=== PATIENT | female | born 1955 | race African-American/Black ===

== ENCOUNTER 2020-07-28 19:31 | Observation (INO) | payer OTHER, SELFPAY ==
[2020-07-28] VITALS (21 sets, daily range): BP systolic 137–184; BP diastolic 75–96; PULSE 96–104; RESP 9–19; TEMP 36.6; O2SAT 96–100
--- NOTE | ~2020-07-28 | CT_ITS ---
EXAMINATION: CT brain wo con DATE: 07/28/2020 21:13 INDICATION: Confusion, altered mental state. Overdose. History of cerebrovascular accident. TECHNIQUE: Computed tomography (CT) of the head was performed without intravenous contrast. The mA wa s adjusted according to patient size. Iterative reconstruction technique was employed. Exam dose: 68 1.00 mGy-cm total exam DLP. COMPARISON: None FINDINGS: Bilateral basal ganglia hypodensities suggest chronic lacunar infarcts. Subtle hyperdensiti es in the right basal ganglia (series 2 image 23) may be consistent with minimal focal recent hemorrh age. MR imaging is recommended for further evaluation. No intracranial mass lesion or midline shift or mass effect effect evident. Normal ventricular size. No subdural or epidural hematoma. No fracture or bone destruction of the cranial vault. Minimal soft tissue thickening within the left ethmoid air cells is noted. The included paranasal sinuses and mastoid air cells are otherwise unrema rkable. IMPRESSION: Subtle focal hyperdensities in the right basal ganglia may be consistent with minimal foc al recent hemorrhage. Bilateral basal ganglia hypodensities suggest chronic lacunar infarcts Consider brain MRI for further evaluation Reviewed, dictated and finalized at [facility]. Reviewed, dictated and finalized at [facility]. IMPRESSION: Subtle focal hyperdensities in the right basal ganglia may be consi stent with minimal focal recent hemorrhage. Bilateral basal ganglia hypodensities suggest chronic lacunar infarcts Consider brain MRI for further evaluation
--- NOTE | ~2020-07-28 | MR_ITS ---
EXAMINATION: MR brain IAC wo con EXAM DATE: 07/29/2020 13:27 INDICATION: Encephalopathy TECHNIQUE: Multi-sequential, multiplanar MR images of the brain, brainstem, internal auditory canals were obtained without contrast. Whole brain sagittal T1, axial diffusion, gradient echo (T2*), T1, T 2, FLAIR sequences obtained. High resolution coronal 3-D FIESTA, coronal T1 FSE, axial T1 FSPGR of t he internal auditory canals. Correlation is made to head CT from 07/28/2020. FINDINGS: No evidence of mastoid or middle ear opacification. The 7th/8th cranial nerve complexes a re symmetric, normal in course and caliber. No cerebellopontine angle masses. Posterior fossa unrem arkable. There are no areas of restricted diffusion to suggest acute infarction. There is symmetric T2 hyperin tensity within the globus pallidus bilaterally without corresponding restricted diffusion or signific ant increase on FLAIR sequences. Appearance suggests that this is chronic finding, with differential diagnosis including prior episode carbon monoxide poisoning, old lacunar infarctions. There is no acute hemorrhage seen on the T2*, a hemosiderin sensitive sequence. No intraparenchymal brain mass lesion. There is mild to moderate periventricular and subcortical T2/FLAIR signal hyperint ensity, nonspecific but probably related to small vessel ischemic disease (microangiopathy). There are no extra-axial collections. Flow voids are seen in the cerebral arteries on the T2-weighted sequ ences consistent with their expected patency. The orbits are unremarkable. Soft tissue is unremarka ble. IMPRESSION: 1. No acute intracranial findings. 2. Symmetric basal ganglia T2 signal hyperintensity most likely chronic. Considerations include lillie or episode Carbon monoxide poisoning, old symmetric lacunar infarctions from other etiology. 3. Mild to moderate microangiopathy. Reviewed, dictated and finalized at [facility]. IMPRESSION: 1. No acute intracranial findings. 2. Symmetric basal ganglia T2 signal hyperintensity most likely chronic. Cons iderations include prior episode Carbon monoxide poisoning, old symmetric lacun ar infarctions from other etiology. 3. Mild to moderate microangiopathy.
--- NOTE | ~2020-07-28 | XR_ITS ---
EXAMINATION: XR ankle LT 2V DATE: 07/29/2020 07:42 INDICATION: Left foot pain TECHNIQUE: Anteroposterior and lateral views of the left ankle were obtained. COMPARISON: None. FINDINGS: Alignment is normal. No fracture. The subtalar joint is not profiled with appearance suggesting poss ible talocalcaneal coalition. Mild osteoarthritis at the first metatarsophalangeal and a few tarsal m etatarsal joints. Small plantar calcaneal spur.. No ankle joint effusion. The soft tissues are unrem arkable. IMPRESSION: 1. 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 No acute osseous abnormality. 2. Mild degenerative changes including mild polyarticular osteoarthritis in the mid and forefoot and small plantar calcaneal spur. Reviewed, dictated and finalized at [facility]. IMPRESSION: 1. 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 No acute osseous abnormality . 2. Mild degenerative changes including mild polyarticular osteoarthritis in the mid and forefoot and small plantar calcaneal spur.
--- NOTE | 2020-07-28 19:44 | ECG_ITS ---
Measurements Intervals Ocate Rate: 97 P: 69 TX: 131 QRS: 51 QRSD: 82 T: 63 QT: 336 QTc: 429 Interpretive Statements SINUS RHYTHM BASELINE ARTIFACT- I, II, AVR, AVL NORMAL ECG Electronically Signed On 07-28-2020 20:03:40 CDT by Rafael Gillis D.O.
--- NOTE | 2020-07-28 20:44 | ED.OVERDOSE ---
HPI - Overdose General Chief Complaint: Overdose Stated Complaint: ingestion - vicodin and thc Time Seen by Provider: 07/28/20 20:39 Source: EMS Mode of arrival: EMS Limitations: no limitations History of Present Illness HPI Narrative: Patient is a 64-year-old female brought in by EMS due to possible drug overdose. Patient was found unresponsive with vomit in her mouth by family member and called EMS. Upon EMS arrival, patient was given Narcan, which reversed her condition, she became more alert and awake. Patient has a history of drug abuse last year and CVA. Patient states that she took 4 tablets of her Vicodin because she was having severe pain from her broken foot she suffered last year. I asked if she took any other drugs besides the Vicodin that was prescribed, she admits to taking heroin, which he snorted. Patient denies any thoughts of self injury or suicidal thoughts. Patient denies any headache, speech or visual disturbance, focal weakness or numbness, chest pain, shortness of breath abdominal pain, nausea, vomiting, fever or chills. Review of Systems Review of Systems: All systems reviewed & are unremarkable except as noted in HPI and below Constitutional: Constitutional: Denies body ache(s), Denies chills, Denies excessive sweating, Denies fatigue, Denies fever(s), Denies headache(s), Denies lethargy, Denies malaise, Denies weakness and Denies weight loss Eyes: Eyes: Denies blurry vision, Denies change in vision and Denies loss of vision ENT: Denies dizziness, Denies ear discharge, Denies headache(s), Denies lip swelling, Denies epistaxis, Denies nasal congestion, Denies neck pain, Denies throat swelling and Denies tongue swelling Cardiovascular: Cardiovascular: Denies chest pain, Denies chest pain at rest, Denies chest pain with activity, Denies diaphoresis, Denies rapid heart rate, Denies edema, Denies irregular heart rhythm, Denies lightheadedness, Denies palpitations, Denies dyspnea and Denies dyspnea on exertion Respiratory: Respiratory: Denies chest congestion, Denies cough, Denies hemoptysis, Denies dyspnea and Denies dyspnea on exertion Gastrointestinal: Gastrointestinal: Denies abdominal pain, Denies melena, Denies hematochezia, Denies diarrhea, Denies nausea, Denies vomiting and Denies hematemesis Musculoskeletal: Musculoskeletal: Denies neck pain and Denies numbness Neurologic: Denies Abnormal speech present, Denies abnormal gait, Denies confusion, Denies dizziness, Denies headache(s), Denies focal weakness, Denies loss of vision, Denies numbness, Denies Other visual disturbances, Denies Sensory deficit (Neuro) and Denies weakness Psychiatric: Psychiatric: Denies confusion, Denies depression, Denies auditory hallucinations, Denies homicidal ideation and Denies suicidal ideation Endocrine: Endocrine: Denies cold intolerance, Denies excessive sweating, Denies fatigue, Denies heat intolerance and Denies palpitations Hematologic/Lymphatic: Hematologic/Lymphatic: Denies easy bleeding and Denies easy bruising Allergic/Immunologic: Allergic/Immunologic: Denies lip swelling, Denies throat swelling and Denies tongue swelling PMFSH Comments Past medical history: CVA, chronic pain Social history: Smoker, no EtOH use, occasional drug use Family history: Noncontributory Exam Const: General: cooperative, healthy appearing, comfortable, no acute distress, well developed, alert and awake; No confusion Orientation/consciousness: oriented to person, oriented to place, oriented to time, patient oriented x3 and No confusion Limitations: no limitations HENMT: Head: normal to inspection, normocephalic and atraumatic Ears: hearing grossly normal bilaterally, TM normal on the right and TM normal on the left General nose exam: Normal external nose present, Normal nares present and No nasal discharge present Face and sinus: normal facial exam Mouth: Yes Normal oral and palatal mucosa present, Yes lip normal, Yes tongue normal and Yes
--- NOTE | 2020-07-28 21:06 | PC.NURSE ---
Zayda, [facility] [employer], said they would run the [facility]ed blood soon.
[2020-07-28 21:10] LABS: Basophils Percent Auto 0.3 % (0.2-1.2); Eosinophils Percent Auto 0.7 % (0-4.4); Hematocrit 38.1 % (37.0-47.0); Hemoglobin 12.2 g/dL (12.0-15.0); Immature Granulocyte Absolute 0.02 K/mm3 (0.00-0.031); Immature Granulocyte Percent A 0.3 % (0-0.5); Lymphocytes Absolute Auto 0.45 K/mm3 (0.9-3.2); Lymphocytes Percent Auto 7.3 % (18.3-44.2); Mean Corpuscular Hemoglobin 29.1 pg (26-34); Mean Corpuscular Volume 90.9 fl (80-100); Mean Platelet Volume 9.9 fl (7.4-10.4); Monocytes Absolute Auto 0.4 K/mm3 (0.1-0.6); Monocytes Percent Auto 6.7 % (2.6-8.5); Neutrophils Absolute Auto 5.2 K/mm3 (1.3-6.7); Neutrophils Percent Auto 84.7 % (45.5-73.1); Platelet Count Result 312 k/mm3 (150-375); Red Blood Count 4.19 M/mm3 (4.2-5.4); Red Cell Distribution Width 14.6 % (11.5-14.5); White Blood Count 6.2 K/mm3 (4.5-10.0)
[2020-07-28 21:18] LABS: Alanine Aminotransferase 19 U/L (4-35); Albumin Level 4.5 g/dL (3.5-5.1); Alkaline Phosphatase 105 U/L (38-126); Anion Gap 10 mmol/L (8-16); Aspartate Amino Transferase 58 U/L (14-36); Bilirubin,Total 0.4 mg/dL (0.2-1.3); Blood Urea Nitrogen 16 mg/dL (7-17); Calcium 9.5 mg/dL (8.4-10.2); Carbon Dioxide 27 mmol/L (22-30); Chloride 104 mmol/L (98-107); Estimated Glomerular Filt Rate 55; Glucose 104 mg/dL (65-105); Potassium 4.1 mmol/L (3.4-5.0); Sodium 141 mmol/L (137-145)
[2020-07-28 21:20] LABS: Acetaminophen < 10 ug/mL (10-30); Ethanol < 10 mg/dL (<10); Salicylate < 1.0 mg/dL (2-20)
--- NOTE | 2020-07-28 23:42 | PC.NURSE ---
Pt drowsy but easily awakes to name.
[2020-07-28 23:58] LABS: Amphetamine Screen Urine Negative (Negative); Barbiturate Screen Urine Negative (Negative); Benzodiazepines Screen Urine Negative (Negative); Cannabinoid Screen Urine Positive (Negative); Cocaine Screen Urine Negative (Negative); Methadone Screen Urine Negative (Negative); Opiate Screen Urine Positive (Negative); Phencyclidine Screen Urine Negative (Negative)
[2020-07-29] VITALS (22 sets, daily range): BP systolic 138–203; BP diastolic 73–95; PULSE 74–100; RESP 8–18; TEMP 36.1–36.8; O2SAT 93–100; BMI 29.4
--- NOTE | 2020-07-29 01:04 | ADMGEN ---
This patient, Dara Cain, was admitted to [facility] Surg Room 333-01. Patient/family oriented to hospital policies and general routines including ID bracelet, bed and alarms, visiting hours, pain management, procedures, bathroom and other care routines, personal items, smoking policy, room service/diet, and visiting hours. Information on how to activate the Rapid Response Team has been discussed. Patient/Family are encouraged to report perceived risks to care and to ask questions if they do not understand what they are told or what they should do.
[2020-07-29] MEDS: LACTATED RINGERS 1,000 ML 125 ML IV CONT (01:24)
--- NOTE | 2020-07-29 05:48 | PM.IMHP ---
H&P: HPI History of Present Illness Date/Time: 07/29/20 05:48 Chief Complaint: overdose Narrative: Patient is a 64-year-old female brought in by EMS due to possible drug overdose. Patient was found unresponsive with vomit in her mouth by family member and called EMS. Upon EMS arrival, patient was given Narcan, which reversed her condition, she became more alert and awake. Patient has a history of drug abuse last year and CVA. Patient states that she took 4 tablets of her Vicodin because she was having severe pain from her broken foot she suffered last year. Ed doctor asked if she took any other drugs besides the Vicodin that was prescribed, she admits to taking heroin, which she snorted. Patient denies any thoughts of self injury or suicidal thoughts. Patient denies any headache, speech or visual disturbance, focal weakness or numbness, chest pain, shortness of breath abdominal pain, nausea, vomiting, fever or chills. upon my evaluation, she also mentioned she took some TAC which is a word used to say pot. she states she didnot tkae anything else. she reports that she is seeing someone in [facility] for her left foot fracture. Review of Systems Review of Systems: Narrative: - CONSTITUTIONAL: Denies weight loss, fever and chills. - HEENT: Denies changes in vision and hearing - RESPIRATORY: Denies SOB and cough. - CV: Denies palpitations and CP. - GI: Denies abdominal pain, nausea, vomiting and diarrhea. - : Denies dysuria and urinary frequency. - MSK: reports myalgia and joint pain. reports left foot pain - SKIN: Denies rash and pruritus. - NEUROLOGICAL: Denies headache and syncope. - PSYCHIATRIC: Denies recent changes in mood. Denies anxiety and depression. All systems reviewed & are unremarkable except as noted in HPI and below Constitutional: Constitutional: Reports fatigue and Reports weakness Neurologic: Reports weakness Endocrine: Endocrine: Reports fatigue [facility] Family History Family History (Updated 07/29/20 @ 01:12 by Raine Raymundo RN) Father Heart attack Sibling Lung cancer Social History Social History Smoking status: Current every day smoker Tobacco type: cigarettes Alcohol intake: former Gender identity (if verbalized by the patient): Female Spiritual care concerns: No Meds Home Medications and Allergies Allergies Allergy/AdvReac Type Severity Reaction Status Date / Time No Known Allergies Allergy Verified 06/01/21 23:36 Vital Signs Vital Signs - 24 hr 07/28/20 19:40 07/28/20 19:47 07/28/20 20:47 Temperature 97.8 F Pulse Rate 99 96 Respiratory Rate 13 16 12 Blood Pressure 184/95 H Pulse Oximetry 100 100 07/28/20 21:21 07/28/20 21:30 07/28/20 21:31 Temperature Pulse Rate 100 96 97 Respiratory Rate 9 L 19 15 Blood Pressure 166/91 H Pulse Oximetry 100 99 98 07/28/20 21:45 07/28/20 21:46 07/28/20 22:00 Temperature Pulse Rate 98 96 98 Respiratory Rate 12 9 L 17 Blood Pressure 163/82 H 166/96 H Pulse Oximetry 98 99 97 07/28/20 22:03 07/28/20 22:15 07/28/20 22:16 Temperature Pulse Rate 99 101 H 104 H Respiratory Rate 12 14 15 Blood Pressure 140/86 Pulse Oximetry 99 97 98 07/28/20 22:32 07/28/20 22:46 07/28/20 23:00 Temperature Pulse Rate 98 103 H 103 H Respiratory Rate 10 L 11 L 13 Blood Pressure 137/84 Pulse Oximetry 96 98 99 07/28/20 23:02 07/28/20 23:18 07/28/20 23:30 Temperature Pulse Rate 99 100 98 Respiratory Rate 10 L 11 L 12 Blood Pressure 169/75 H Pulse Oximetry 98 97 96 07/28/20 23:33 07/28/20 23:45 07/28/20 23:49 Temperature Pulse Rate 99 100 97 Respiratory Rate 12 11 L 12 Blood Pressure 149/87 H Pulse Oximetry 99 97 97 07/29/20 00:00 07/29/20 00:01 07/29/20 00:15 Temperature Pulse Rate 99 100 98 Respiratory Rate 12 10 L 12 Blood Pressure 157/74 H 151/91 H Pulse Oximetry 97 97 97 07/29/20 00:16 07/29/20 00:30 07/29/20 00:31 Temperature Pulse Rate
[2020-07-29] MEDS: LACTATED RINGERS 1,000 ML 75 ML IV CONT (10:40)
--- NOTE | 2020-07-29 11:22 | PM.IMPN ---
Progress Note: A&P Assessment and Plan (1) Accidental drug overdose: Qualifiers: Encounter type: initial encounter Qualified Code(s): T50.901A - Poisoning by unspecified drugs, medicaments and biological substances, accidental (unintentional), initial encounter Code(s): T50.901A - Poisoning by unspecified drugs, medicaments and biological substances, accidental (unintentional), initial encounter Status: Acute Assessment and Plan: Patient took 4 Vicodin, some haroin, and THC Patient was found with vomit in her mouth Still lethargic today CT findings:Subtle focal hyperdensities in the right basal ganglia may be consistent with minimal focal recent hemorrhage. Bilateral basal ganglia hypodensities suggest chronic lacunar infarcts Will get MRI NPO will change to clears Trend labs Neurochecks q4hr Tele monitor LR at 75ml/hr (2) Altered mental status, unspecified: Qualifiers: Altered mental status type: unspecified Qualified Code(s): R41.82 - Altered mental status, unspecified Code(s): R41.82 - Altered mental status, unspecified Status: Acute Assessment and Plan: See above (3) Left foot pain: Code(s): M79.672 - Pain in left foot Status: Acute Assessment and Plan: X ray does not show any fracture Walk boot is present PT OT (4) Acute encephalopathy: Code(s): G93.40 - Encephalopathy, unspecified Status: Acute Assessment and Plan: See above (5) Hypertension: Code(s): I10 - Essential (primary) hypertension Status: Acute Assessment and Plan: Blood pressure was reported to be 204/92 PRN hydralizine has been ordered with parameters Trend blood pressures will add something if needed Time Spent With Patient Time with patient: 25 - 35 minutes Subjective Date/time seen: 07/29/20 11:22 Patient is a 64-year-old female who was brought into the ED yesterday for drug overdose. According to the ED note patient was found at home unresponsive vomiting her mouth and EMS was called by family member to have her evaluated she was given Narcan upon arrival which made her more alert oriented. Patient did say that she is feeling more so so today better pain is still there and in her left foot she said that she had her foot on the bedside and really messed it up. Patient is level responsive today she does respond to her name. Patient is lethargic at times and sometimes after really engage with her to get her to respond to. Patient does report any symptomatology she denies nausea vomiting, abdominal pain, shortness of breath, chest pain, fevers, chills, weakness, fatigue, headache, dizziness, syncope or falls. Patient also says she has not in a couple of days she has no appetite. She also admits taking for Vicodin, snorting heroin, and smoking THC. She does admit to taking all her meds the way they are there prescribed and that she has received both her COVID vaccinations. Patient does does have a walking boot on she said that she does only use it when she walks around intake staff when she sleeps. RN did report this morning that her blood pressure was high at 204/92. When asked about her high blood pressure she said that she has been taking her blood pressure nor does she have high blood pressure. Review of Systems Review of Systems: All systems reviewed & are unremarkable except as noted in HPI and below Exam Const: General: cooperative, healthy appearing, comfortable, no acute distress, well developed, alert, awake and Physically active Nutritional Appearance: well nourished Orientation/consciousness: patient oriented x3 Limitations: no limitations HENMT: Head: normal to inspection Ears: hearing grossly normal bilaterally General nose exam: Normal external nose present Mouth: Yes Normal oral and palatal mucosa present, Yes lip normal and Yes t
[2020-07-29] MEDS: CITALOPRAM HYDROBROMIDE 20 MG TABLET PO (14:01)
[2020-07-29] MEDS: hydrALAZINE HCL 20 MG/ML VIAL 10 MG IV PUSH ×2 (14:29→21:48)
[2020-07-30] MEDS: LACTATED RINGERS 1,000 ML 75 ML IV CONT (03:49)
[2020-07-30 05:50] VITALS: BP 181/109; PULSE 105; RESP 18; TEMP 36.6; O2SAT 97
[2020-07-30] MEDS: hydrALAZINE HCL 20 MG/ML VIAL 10 MG IV PUSH (06:01)
[2020-07-30 06:22] LABS: Hematocrit 39.1 % (37.0-47.0); Hemoglobin 12.9 g/dL (12.0-15.0); Mean Corpuscular Volume 87.9 fl (80-100); Mean Platelet Volume 9.6 fl (7.4-10.4); Platelet Count Result 303 k/mm3 (150-375); Red Blood Count 4.45 M/mm3 (4.2-5.4); Red Cell Distribution Width 14.1 % (11.5-14.5); White Blood Count 6.7 K/mm3 (4.5-10.0)
[2020-07-30 06:34] LABS: Alanine Aminotransferase 19 U/L (4-35); Albumin Level 4.3 g/dL (3.5-5.1); Alkaline Phosphatase 101 U/L (38-126); Anion Gap 11 mmol/L (8-16); Aspartate Amino Transferase 66 U/L (14-36); Bilirubin,Total 1.1 mg/dL (0.2-1.3); Blood Urea Nitrogen 11 mg/dL (7-17); Calcium 9.5 mg/dL (8.4-10.2); Carbon Dioxide 21 mmol/L (22-30); Chloride 105 mmol/L (98-107); Estimated Glomerular Filt Rate > 60; Glucose 94 mg/dL (65-105); Potassium 4.3 mmol/L (3.4-5.0); Sodium 137 mmol/L (137-145)
[2020-07-30 07:39] LABS: Bilirubin Urine Negative (Negative); Blood Urine 3+ (Negative); Glucose Urine UA Negative (Negative); Ketones Urine 2+ mg/dL (Negative); Leukocyte Esterase Ur 2+ LEU/UL (NEGATIVE); Nitrate Urine Positive (Negative); Protein Urine 1+ mg/dL (Negative); pH Urine 8.5 (5.0-9.0)
[2020-07-30] MEDS: CITALOPRAM HYDROBROMIDE 20 MG TABLET PO (08:29)
[2020-07-30] MEDS: lisinopriL 5 MG TABLET PO (08:29)
[2020-07-30 08:41] LABS: Add Urine Microscopic? YES; Color Urine Light Red (Yellow)
[2020-07-30 08:42] LABS: Appearance Urine Cloudy (Clear); RBC Urine >75 /hpf (0-2); Squamous Epithelial Cell Urine Occasional /hpf (Few)
[2020-07-30 08:43] LABS: Bacteria Urine 1+ /hpf
--- NOTE | 2020-07-30 09:45 | PM.DS ---
DS: Admitting Diagnosis Admitting Diagnosis Admitting Diagnosis: Accidental drug overdose DS: Discharge Diagnosis Discharge Diagnosis (1) Accidental drug overdose: Qualifiers: Encounter type: initial encounter Qualified Code(s): T50.901A - Poisoning by unspecified drugs, medicaments and biological substances, accidental (unintentional), initial encounter Code(s): T50.901A - Poisoning by unspecified drugs, medicaments and biological substances, accidental (unintentional), initial encounter Status: Acute Assessment and Plan: Patient took 4 Vicodin, some haroin, and THC Patient was found with vomit in her mouth Still lethargic today CT findings:Subtle focal hyperdensities in the right basal ganglia may be consistent with minimal focal recent hemorrhage. Bilateral basal ganglia hypodensities suggest chronic lacunar infarcts MRI did not have any acute findings Tolerating a diet Trend labs Neurochecks q4hr Tele monitor LR at 75ml/hr (2) Altered mental status, unspecified: Qualifiers: Altered mental status type: unspecified Qualified Code(s): R41.82 - Altered mental status, unspecified Code(s): R41.82 - Altered mental status, unspecified Status: Acute Assessment and Plan: See above (3) Left foot pain: Code(s): M79.672 - Pain in left foot Status: Acute Assessment and Plan: X ray does not show any fracture Walk boot is present PT OT (4) Acute encephalopathy: Code(s): G93.40 - Encephalopathy, unspecified Status: Acute Assessment and Plan: See above (5) Hypertension: Qualifiers: Hypertension type: essential hypertension Qualified Code(s): I10 - Essential (primary) hypertension Code(s): I10 - Essential (primary) hypertension Status: Acute Assessment and Plan: Blood pressure was reported to be PRN hydralizine has been ordered with parameters Added lisinopril 5mg PO daily Trend blood pressures will add something if needed DS: Summary Hospital Course Hospital Course: Patient is a 64-year-old female with a past medical history of chronic pain who was brought into the ED yesterday for drug overdose. According to the ED note patient was found at home unresponsive vomiting her mouth and EMS was called by family member to have her evaluated she was given Narcan upon arrival which made her more alert oriented. Patient started off her hospital course being very lethargic and hard to arouse. She is currently alert and oriented x 3 and has been able to tolerate p.o. intake. Her blood pressure has been a little bit on the higher side this admission p.o. lisinopril has been added to her regimen. Blood pressure has been better controlled with that will send patient home with lisinopril 5 mg p.o. patient stated that she has been able to eat and had having hamburger since her stay. She denies nausea vomiting, abdominal pain, shortness of breath, chest pain, fevers, chills, weakness, fatigue, headache, dizziness, syncope or falls. Patient did have a CT that showed no abnormalities and further studies with an MRI of the brain was also done that showed no acute abnormalities but did have some chronic findings. All lab tests were normal. Patient did say that she was having some sweats and chills however the room temperature is extremely cold patient also stated she has some weakness which is understandable for being a bed for day. She also did have a cough that is probably chronic in nature from smoking Time spent discussing smoking cessation with patient: more than 10 minutes Status at Discharge Functional status at discharge: independent ambulation Overall status at discharge: patient is back to baseline Time Spent with Patient Time attestation: Total time spent providing and/or coordinating discharge services: Documentation, chart revi
[2020-07-30 09:47] VITALS: O2SAT 99
[2020-07-30 12:41] VITALS: BP 181/91; PULSE 118; RESP 12; TEMP 36.2; O2SAT 100
[2020-07-30] MEDS: hydroCHLOROthiazide 12.5 MG CAPSULE PO (13:02)
[2020-07-30 14:00] VITALS: BP 171/96; PULSE 113; RESP 14; TEMP 36.4; O2SAT 100
[2020-07-30] MEDS: hydrALAZINE HCL 20 MG/ML VIAL IV PUSH (15:55)
== END 2020-07-30 18:50 | disposition home or self-care (01) ==
LOC: ANHED 23:18 → ANH3MEDSUR 07-29 01:23
PROVIDERS: Nurse Practitioner; Admitting Provider Internal Medicine; Emergency Provider Emergency Medicine; PCP Physician Assistant; Visit Provider Internal Medicine
DX: T50.901A Poisoning by unspecified drugs, medicaments and biological substances, accidental (unintentional), initial encounter (principal); M79.672 Pain in left foot; F17.210 Nicotine dependence, cigarettes, uncomplicated; G93.40 Encephalopathy, unspecified; I10 Essential (primary) hypertension; Z86.73 Personal history of transient ischemic attack (TIA), and cerebral infarction without residual deficits; R30.0 Dysuria
CPT/HCPCS: 36415; 51701; 70450; 70551; 73600; 80053; 80307; 81001; 85025; 85027; 87077; 87086; 87088; 87186; 93005; 96361; 96374; 96376; 99285; A9270; G0378; G0379; J0360; J7120

== ENCOUNTER 2023-09-25 11:14 | Emergency (ER) | payer OTHER, SELFPAY ==
--- NOTE | ~2023-09-25 | XR_ITS ---
EXAMINATION: XR foot LT min 3V DATE: 09/25/2023 12:12 INDICATION: Left foot pain. TECHNIQUE: 4 views of left foot were obtained. COMPARISON: Left ankle radiographs 07/29/2020 FINDINGS: There is moderate hallux valgus. No fracture. There is mild osteoarthritis of first metatar sophalangeal joint and some of the interphalangeal joints. There are enthesophytes at the posterior a nd plantar aspects of calcaneal tuberosity. IMPRESSION: 1. Moderate hallux valgus. 2. Mild polyarticular osteoarthritis. Reviewed, dictated and finalized at location A.
[2023-09-25 11:15] VITALS: BP 152/95; PULSE 105; RESP 17; TEMP 36.9; O2SAT 100
[2023-09-25] MEDS: KETOROLAC 30 MG/ML VIAL (*BKC) IM (11:58)
--- NOTE | 2023-09-25 12:38 | ED.GENADULT ---
HPI - General Adult General Chief complaint: Extremity Injury, Lower Stated complaint: foot pain Time Seen by Provider: 09/25/23 11:17 History of Present Illness HPI narrative: This is a 68-year-old female with chronic pain presenting with foot pain. Patient says that she usually takes Vicodin but she ran out. Now she has pain that goes from her foot to her entire body. No other symptoms. She has not taken anything for pain. Related Data Home Medications Medication Instructions Recorded Confirmed baclofen 10 mg tablet 10 mg PO TID 07/29/20 07/29/20 citalopram 20 mg tablet 20 mg PO DAILY 07/29/20 07/29/20 meloxicam 15 mg tablet 15 mg PO DAILY 07/29/20 07/29/20 oxycodone-acetaminophen 5 mg-325 1 tablet PO Q6H 07/29/20 07/29/20 mg tablet (Percocet) Allergies Allergy/AdvReac Type Severity Reaction Status Date / Time No Known Allergies Allergy Verified 07/28/20 23:36 [facility] Past Medical History Medical History Left foot pain Family History Family History Father Heart attack Sibling Lung cancer Social History Social History Smoking status: Current every day smoker Tobacco type: cigarettes Alcohol intake: former Gender identity (if verbalized by the patient): Female Spiritual care concerns: No Exam Narrative: APPEARANCE: No apparent distress. Head: atraumatic. EYES: EOMI, NOSE: Atraumatic NECK: Trachea midline RESPIRATORY: No increased rate of breathing CARDIOVASCULAR: RRR, no peripheral edema ABDOMINAL: Non-distended MUSCULOSKELETAl: Focal exam of the left foot reveals no point areas of tenderness, no swelling no erythema redness or signs of injury. NEURO: Alert. Moving 4/4 extremities SKIN:: Warm, dry. Normal color PSYCHIATRIC: Normal affect Course Vital Signs Vital signs: Vital Signs Temperature 98.4 F 09/25/23 11:15 Pulse Rate 105 H 09/25/23 11:15 Respiratory Rate 17 09/25/23 11:15 Blood Pressure 152/95 H 09/25/23 11:15 Pulse Oximetry 100 09/25/23 11:15 Temperature 98.4 F 09/25/23 11:15 Pulse Rate 105 H 09/25/23 11:15 Respiratory Rate 17 09/25/23 11:15 Blood Pressure 152/95 H 09/25/23 11:15 Pulse Oximetry 100 09/25/23 11:15 Medical Decision Making MDM Narrative Medical decision making narrative: 68-year-old female presenting with chronic foot pain. X-rays negative for fracture. Patient given Toradol and discharged with primary care follow-up. Vital Signs Vital Signs: Vital Signs Temperature 98.4 F 09/25/23 11:15 Pulse Rate 105 H 09/25/23 11:15 Respiratory Rate 17 09/25/23 11:15 Blood Pressure 152/95 H 09/25/23 11:15 Pulse Oximetry 100 09/25/23 11:15 Temperature 98.4 F 09/25/23 11:15 Pulse Rate 105 H 09/25/23 11:15 Respiratory Rate 17 09/25/23 11:15 Blood Pressure 152/95 H 09/25/23 11:15 Pulse Oximetry 100 09/25/23 11:15 Discharge Plan Discharge Clinical Impression: Chronic foot pain Patient Disposition: Home, Self-Care Condition: Stable Instructions: Antibiotic Form, Chronic Pain (ED) Additional Instructions: Please follow-up with your primary care physician for further management of your pain. Prescriptions: New ibuprofen 800 mg tablet 800 mg PO TID PRN (Reason: pain) 7 Days Qty: 21 0RF acetaminophen 500 mg tablet 1,000 mg PO TID PRN (Reason: dustin) 7 Days Qty: 42 0RF No Action meloxicam 15 mg tablet 15 mg PO DAILY oxycodone-acetaminophen [Percocet] 5-325 mg Tablet 1 tablet PO Q6H Rx Instructions: Pharmacy stated patient has not filled this prescription yet. citalopram 20 mg tablet 20 mg PO DAILY baclofen 10 mg tablet 10 mg PO TID lisinopril-hydrochlorothiazide 10-12.5 mg tablet 1 tablet PO DAILY Qty: 30 0RF cefdinir 300 mg capsule 300 mg
[2023-09-25 13:09] VITALS: PULSE 98; RESP 17; TEMP 36.9; O2SAT 100
== END 2023-09-25 13:12 | disposition home or self-care (01) ==
PROVIDERS: Emergency Provider Emergency Medicine
DX: M79.672 Pain in left foot (principal); G89.29 Other chronic pain; F17.210 Nicotine dependence, cigarettes, uncomplicated
CPT/HCPCS: 73630; 96372; 99283; J1885

== ENCOUNTER 2023-10-25 09:16 | Emergency (ER) | payer OTHER, SELFPAY ==
--- NOTE | ~2023-10-25 | XR_ITS ---
XR foot LT 2V 10/25/2023 09:38 Indication: Left great toe pain Procedure: 2 views left foot Comparison: 09/25/2023 Findings: Moderate osteoarthritis of the first MTP joint with hallux valgus. Small loose bodies media l to the joint space. Lisfranc joint intact. Small degenerative calcaneal enthesophyte. Normal minera lization. No fracture or traumatic malalignment. Impression: 1: Stable osteoarthritis of the first metatarsophalangeal joint with hallux valgus. Reviewed, dictated and finalized at location B. Impression: 1: Stable osteoarthritis of the first metatarsophalangeal joint with hallux tonie alexis.
[2023-10-25 09:19] VITALS: BP 173/129; PULSE 117; RESP 19; TEMP 36.6; O2SAT 100
--- NOTE | 2023-10-25 09:32 | ED.LOWEXIN ---
HPI - Extremity Injury (Lower) General Chief Complaint: Extremity Injury, Lower Stated Complaint: foot pain for 2 years Time Seen by Provider: 10/25/23 09:22 History of Present Illness HPI Narrative: 68-year-old female presents emergency room for evaluation of left foot pain that she has had intermittently for several years. Patient states that she took gabapentin at o'clock this morning with no improvement of her symptoms. Patient also admits to taking street fentanyl prior to arrival. Related Data Home Medications Medication Instructions Recorded Confirmed baclofen 10 mg tablet 10 mg PO TID 07/29/20 07/29/20 citalopram 20 mg tablet 20 mg PO DAILY 07/29/20 07/29/20 meloxicam 15 mg tablet 15 mg PO DAILY 07/29/20 07/29/20 oxycodone-acetaminophen 5 mg-325 1 tablet PO Q6H 07/29/20 07/29/20 mg tablet (Percocet) Allergies Allergy/AdvReac Type Severity Reaction Status Date / Time No Known Allergies Allergy Verified 10/25/23 09:25 Review of Systems Review of Systems: ROS unremarkable except for noted in HPI [facility] Past Medical History Medical History Left foot pain Family History Family History Father Heart attack Sibling Lung cancer Social History Social History Smoking status: Current every day smoker Tobacco type: cigarettes Alcohol intake: former Gender identity (if verbalized by the patient): Female Spiritual care concerns: No Exam Narrative: GENERAL: no acute distress. HEAD: Normocephalic, atraumatic. EYES: Conjunctivae normal, PERRLA and EOMI. CHEST: Clear to auscultation. No respiratory distress. No wheezes rales or rhonchi. HEART: Regular rate and rhythm. No murmur heard. Normal peripheral pulses. EXTREMITIES: Left foot: NTTP, no STS, erythema, ecchymosis or bony abnormality SKIN: Warm, dry, no rash. No noted wounds NEURO: No focal deficits. Alert and oriented x3. MAEW. CN's II-XI intact bilaterally, normal gait PSYCH: Cooperative. Normal mood and affect. Course Vital Signs Vital signs: Vital Signs Temperature 36.6 C 10/25/23 09:19 Pulse Rate 117 H 10/25/23 09:19 Respiratory Rate 19 10/25/23 09:19 Blood Pressure 173/129 H 10/25/23 09:19 Pulse Oximetry 100 10/25/23 09:19 Oxygen Delivery Room Air 10/25/23 09:19 Temperature 36.6 C 10/25/23 09:19 Pulse Rate 117 H 10/25/23 09:19 Respiratory Rate 19 10/25/23 09:19 Blood Pressure 173/129 H 10/25/23 09:19 Pulse Oximetry 100 10/25/23 09:19 Oxygen Delivery Room Air 10/25/23 09:19 MDM - Extremity Injury (Lower) MDM Narrative Medical decision making narrative: 68-year-old female presenting with chronic foot pain. X-rays negative for bony abnormality. Referred to podiatry. Discharge Plan Discharge Clinical Impression: Drug-seeking behavior, Polysubstance abuse, Left foot pain Patient Disposition: Home, Self-Care Condition: Stable Instructions: Antibiotic Form Prescriptions: No Action ibuprofen 800 mg tablet 800 mg PO TID PRN (Reason: pain) 7 Days Qty: 21 0RF acetaminophen 500 mg tablet 1,000 mg PO TID PRN (Reason: dustin) 7 Days Qty: 42 0RF meloxicam 15 mg tablet 15 mg PO DAILY oxycodone-acetaminophen [Percocet] 5-325 mg Tablet 1 tablet PO Q6H Rx Instructions: Pharmacy stated patient has not filled this prescription yet. citalopram 20 mg tablet 20 mg PO DAILY baclofen 10 mg tablet 10 mg PO TID lisinopril-hydrochlorothiazide 10-12.5 mg tablet 1 tablet PO DAILY Qty: 30 0RF cefdinir 300 mg capsule 300 mg PO Q12H Qty: 20 0RF Follow-up/Referrals: Fredi Mar Jr., AARON [Physician] - UNKNOWN,DOCTOR [Primary Care Provider] - Time of Disposition: 09:53
== END 2023-10-25 10:07 | disposition home or self-care (01) ==
PROVIDERS: Emergency Provider Nurse Practitioner Family
DX: M79.672 Pain in left foot (principal); F19.10 Other psychoactive substance abuse, uncomplicated; Z76.5 Malingerer [conscious simulation]; F17.210 Nicotine dependence, cigarettes, uncomplicated; Z79.899 Other long term (current) drug therapy
CPT/HCPCS: 73620; 99283